=== PATIENT | female | born 2000 | race American Indian/Alaskan Native ===

== ENCOUNTER 2019-01-17 08:50 | Observation (INO) | payer BC ==
[2019-01-17] MEDS ORDERED: INFUVITE IV SCH (09:00)
[2019-01-17] MEDS ORDERED: D5LR IV SCH (09:00)
[2019-01-17] MEDS ORDERED: PHENERGAN PR SCH (09:00)
[2019-01-17] MEDS ORDERED: KCL IV SCH (09:00)
--- NOTE | 2019-01-17 10:53 | History and Physical Report ---
History of Present Illness Date of examination: 01/17/19 Date of admission: 01/17/19 09:59 Chief complaint: nausea and vomiting in History of present illness: EDC Confirmation: 08/29/2019 Past History : 2 Term Births: 0 Premature Births: 0 Living Children: 0 Para: 0 Mult. Births: 0 Prev : 0 Prev. attempt? 0 Aborta: 1 Elect. Ab: 1 Spont. Ab: 0 Ectopics: 0 # 1 Delivery date: 05/2017 Weeks Gestation: 7w2d Delivery type: EAB Comments: pill Past Medical History: Negative Past Medical History Past Surgical History: eye surgery elementary school age L eye tear duct Past Medical History Surgery (Non-welfare adviser): eye surgery elementary school age L eye tear duct Abnormal PAP: negative SHANNAN Exposure: negative Infertility: negative Uterine Anomaly: negative Uterine Surgery (not C/S): negative Other Gynecologic Problems: negative Family Hx: mom-diabetes mgm-htn Social Hx: single. 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 of genital herpes: no Partner hx. of genital herpes: no Rash, Viral, or Febrile illness since last LMP? no Varicella/Chicken Pox Status: Immunized TB Risk: no Genetic History Congenital Heart Defect: Mom: no Dad: no Regine Disease: Mom: no Dad: no Thalassemia Mom: no Dad: no Neural Tube Defect Mom: no Dad: no Down's Syndrome Mom: no Dad: no Orestes-Sachs Mom: no Dad: no Sickle Cell Disease/Trait Mom: no Dad: no Hemophilia Mom: no Dad: no Muscular Dystrophy Mom: no Dad: no Cystic Fibrosis Mom: no Dad: no Bailey Chorea Mom: no Dad: no Mental Retardation Mom: no Dad: no Fragile X Mom: no Dad: no Other Genetic/Chromosomal Disorder Mom: no Dad: no Child w/other defect Mom: no Dad: no Comments/Counseling: FOB cousin autistic Enviromental Exposures Enviromental Exposures Reviewed Xray Exposure: no Medication, drug, or alcohol use since LMP: no Chemical/Other Exposure: no Exposure to Cat Liter: no Hx of Parvovirus (Fifth Disease): no Occupational Exposure to Children: none Active Medications (reviewed today): PLUS 27-1 MG ORAL TABLET ( VIT-FE FUMARATE-FA) 1 po daily Current Allergies: No known allergies Past History Past Medical History: other (see HPI) Past Surgical History: other (see HPI) Family/Genetic History: other (see HPI) - Obstetrical History Expected Date of Delivery: 08/29/19 Actual Gestation: 8 Week(s) 0 Day(s) : 2 Para: 0 Hx # Term Pregnancies: 0 Number of Pregnancies: 0 Spontaneous Abortions: 0 Induced : 1 Number of Living Children: 0 Medications and Allergies Allergies Allergy/AdvReac Type Severity Reaction Status Date / Time No Known Allergies Allergy Unverified 01/17/19 10:59 Active Meds: Active Medications Dextrose/Lactated Ringer's (D5lr) 1,000 mls @ 500 mls/hr IV DIRECT MARILYN Stop: 01/18/19 10:59 Multivitamins/Minerals 10 ml/Potassium Cl/Dextrose/Lact Ringer's 1,010 mls @ 150 mls/hr IV DIRECT MARILYN Stop: 01/17/19 15:43 Metoclopramide HCl (Reglan) 10 mg IV Q6H MARILYN Multivitamins/Iron/Calcium ( Vitamin) 1 each PO QDAY MARILYN Ondansetron HCl (Zofran) 4 mg IV Q6H PRN PRN Reason: N/V unrelieved by Reglan Promethazine HCl (Phenergan) 25 mg RI Q6H MARILYN Review of Systems All systems: negative Constitutional: weight loss Gastrointestinal: nausea, vomiting - Physical Exam Breasts: Positive: normal Cardiovascular: Regular rate Lungs: Positive: Clear to auscultation, Normal air movement Abdomen: Positive: normal appearance, soft Extremities: Positive: normal Results Result Diagrams: 01/17/19 10:27 01/17/19 10:27 All other labs normal. Assessment and Plan 18y/o @ 8 weeks from LMP, u/s still needed to confirm viable . Pt has documented 20lb weight loss in last 2 weeks in office. Admission orders in EMR. hyperemesis pathway initiated. discussed plan of care with patient and s/o, all questions addressed. - Patient Problems (1) Hyperemesis gravidarum Current Visit: No Status: Acute Plan to address problem: HG pathway initiated (2) 8 weeks gestation of Current Visit: Yes Status: Acute
[2019-01-17 11:17] LABS: BUN/Creatinine Ratio 15; Blood Urea Nitrogen 9 mg/dL (7-17); Calcium 10.1 mg/dL (8.4-10.2); Hemolysis Index 1
[2019-01-17 11:19] LABS: Basophils % (Auto) 0.3 % (0.0-1.8); Eosinophils # (Auto) 0.1 K/mm3 (0.0-0.4); Eosinophils % (Auto) 0.8 % (0.0-4.3); Hematocrit 41.4 % (30.3-42.9); Hemoglobin 14.5 gm/dl (10.1-14.3); Lymphocytes # (Auto) 1.2 K/mm3 (1.2-5.4); Lymphocytes % (Auto) 12.3 % (13.4-35.0); Mean Corpuscular HGB Conc 35 % (30-34); Mean Corpuscular Volume 90 fl (79-97); Monocytes # (Auto) 0.5 K/mm3 (0.0-0.8); Monocytes % (Auto) 5.3 % (0.0-7.3); Platelet Count 216 K/mm3 (140-440); Red Blood Count 4.61 M/mm3 (3.65-5.03); Red Cell Distribution Width 13.6 % (13.2-15.2)
[2019-01-17 11:32] LABS: Hepatitis B Surface Antigen Non-Reactive (Negative); Hepatitis C Virus Antibody Non-Reactive (NonReactive)
[2019-01-17 12:33] LABS: Bacteria,Urine 1+ /HPF (Negative); Bilirubin,Urine NEG (Negative); Blood,Urine NEG (Negative); Color,Urine Amber (Yellow); Mucus,Urine 3+ /HPF
[2019-01-17] MEDS: D5LR 1,000 ML IV SCH ×4 (12:34→22:49)
[2019-01-17] MEDS: REGLAN IV SCH ×3 (12:35→21:00)
[2019-01-17] MEDS: ZOFRAN IV PRN ×2 (12:35→17:43)
[2019-01-17] MEDS: PRENATAL VITAMIN PO SCH (12:41)
--- NOTE | 2019-01-17 15:15 | Event Note ---
Date: 01/17/19 pt resting in bed, no complaints. denies vomiting since this morning. still waiting on u/s, radiology called by air conditioning unit assembler - they are aware of order and will be here shortly.
--- NOTE | 2019-01-17 21:27 | Event Note ---
Date: 01/17/19 sono completed IUP confirmed. +[facility] EDC by sono is 08/27/19 EGA is 8 2/7 wks which is c/w edc that is given in H&P but also c/w lmp edc. Pt initial sono in office only showed a GS.
[2019-01-18] MEDS: REGLAN IV SCH ×4 (02:10→10:11)
[2019-01-18] MEDS: PRENATAL VITAMIN PO SCH (10:10)
--- NOTE | 2019-01-18 10:35 | Discharge Summary ---
Providers - Providers Date of Admission: 01/17/19 09:59 Date of discharge: 01/18/19 (pt desires d/c home today) Attending physician: SOFYA PINEDA 01/17/19 08:56 Consult to Dietitian/Nutrition [CONS] Routine Physician Instructions: Reason For Exam: Reason for Consult: hyper grav Reason for Consult: Malnutrition [facility] Reason for admission: hyperemesis Condition: Good Procedures: hydration Hospital course: management of hyperemesis and rehydration Disposition: DC-01 TO HOME OR SELFCARE - Discharge Diagnoses (1) Hyperemesis gravidarum Status: Acute Core Measure Documentation - Palliative Care Palliative Care/ Comfort Measures: Not Applicable - Core Measures Any of the following diagnoses?: none Exam - Constitutional Vitals: Temp Pulse Resp BP Pulse Ox 98.1 F 90 18 112/58 99 01/18/19 07:36 01/18/19 07:36 01/18/19 07:36 01/18/19 07:36 01/18/19 05:00 General appearance: Present: no acute distress, well-nourished - EENT ENT: hearing intact - Neck Neck: Present: supple, normal ROM - Respiratory Respiratory effort: normal Respiratory: bilateral: CTA - Cardiovascular Rhythm: regular Heart Sounds: Absent: rub, click - Extremities Extremities: No edema - Abdominal General gastrointestinal: Present: soft, non-tender, non-distended, normal bowel sounds Female genitourinary: Present: normal - Integumentary Integumentary: Present: clear, warm, dry - Musculoskeletal Musculoskeletal: gait normal, strength equal bilaterally - Psychiatric Psychiatric: appropriate mood/affect, intact judgment & insight - Neurologic Neurologic: CNII-XII intact, moves all extremities - Additional findings Additional findings: pt tolerated regular breakfast, denies any nausea or vomiting. no bleeding or cramping Plan Activity: no restrictions Diet: other (Gu[place]upe diet) Follow up with: TRIPP HULL CNM [Advanced Practice Nurse] - 7 Days (Please keep your scheduled appointment in the office next week. Call for any questions or concerns.) Prescriptions: Metoclopramide [Reglan] 10 mg PO Q6H PRN #60 tab PRN Reason: Nausea Ondansetron [Zofran Odt] 4 mg PO Q8HR PRN #30 tab.rapdis PRN Reason: Nausea
[2019-01-18 12:21] VITALS: BP 107/64
--- NOTE | 2019-01-19 17:19 | Ultrasound Report ---
PROCEDURE: US OB <= 14 WEEKS FETUS TECHNIQUE: Ultrasound obstetrical HISTORY: severe N V COMPARISONS: FINDINGS: This gestational sac within the uterus. There is a pole present with crown-rump length of 1.76 cm corresponding to estimated gestational age of 8 weeks 2 days with estimated date of delivery 2019 cardiac activity present with heart rate 1 65 bpm The yolk sac is identified. Right ovary is 3.2 x 2.9 x 3.1 cm. Normal echogenicity Left ovary is 2.0 x 3.2 x 2.7 cm. A 2.0 cm cyst noted IMPRESSION: Single live intrauterine gestation estimated at 8 weeks 2 days. This document is electronically signed by Kendell Rai MD., January 19 2019 05:16:58 PM ET
== END 2019-01-18 13:30 | disposition home or self-care (01) ==
LOC: 3A 08:50 → UNDOADMIN 08:50 → OB 09:59 → INTOOBSV 09:59
PROVIDERS: ADMIT Obstetrics & Gynecology; ATTEND Obstetrics & Gynecology
DX: O21.0 Mild hyperemesis gravidarum (principal); Z83.3 Family history of diabetes mellitus; Z82.49 Family history of ischemic heart disease and other diseases of the circulatory system; Z3A.08 8 weeks gestation of pregnancy
CPT/HCPCS: 36415; 76801; 80048; 80074; 81001; 82010; 82150; 83690; 84443; 85025; 96374; 96375; 96376; G0378; G0379; J2405; J2765; J7120; J7121

== ENCOUNTER 2019-01-27 22:53 | Emergency (ER) | payer BC ==
[2019-01-27 23:36] LABS: Basophils % (Auto) 0.4 % (0.0-1.8); Eosinophils # (Auto) 0.1 K/mm3 (0.0-0.4); Eosinophils % (Auto) 0.7 % (0.0-4.3); Hematocrit 39.7 % (30.3-42.9); Hemoglobin 13.7 gm/dl (10.1-14.3); Lymphocytes # (Auto) 1.4 K/mm3 (1.2-5.4); Lymphocytes % (Auto) 13.1 % (13.4-35.0); Mean Corpuscular HGB Conc 35 % (30-34); Mean Corpuscular Volume 90 fl (79-97); Monocytes # (Auto) 0.7 K/mm3 (0.0-0.8); Monocytes % (Auto) 6.8 % (0.0-7.3); Platelet Count 199 K/mm3 (140-440); Red Cell Distribution Width 14.1 % (13.2-15.2)
[2019-01-28 00:25] LABS: Alanine Aminotransferase 12 units/L (7-56); Albumin 4.3 g/dL (3.9-5); BUN/Creatinine Ratio 16; Blood Urea Nitrogen 8 mg/dL (7-17); Calcium 10.1 mg/dL (8.4-10.2); Hemolysis Index 6
[2019-01-28 00:25] LABS: Bilirubin,Urine NEG (Negative); Blood,Urine NEG (Negative); Color,Urine Amber (Yellow); Mucus,Urine 3+ /HPF
[2019-01-28] MEDS ORDERED: NACL 0.9% 1000 ML 1,000 ML IV ONE (00:51)
--- NOTE | 2019-01-28 02:06 | Emergency Department Report ---
ED N/V/D HPI - General Chief complaint: Nausea/Vomiting/Diarrhea Stated complaint: 10 WKS PREG.NAUSEA/VOMITING/LIGHT HEADED Time Seen by Provider: 01/28/19 00:48 Source: patient Mode of arrival: Ambulatory Limitations: No Limitations - History of Present Illness Initial comments: 18-year-old -Fijian female at 10 weeks , , presents to ED with nausea, vomiting, for the past 2 days worse today. Patient has a history of admission for similar symptoms about 10 days ago, denies any fever, chills or night sweats. Complaining of lightheadedness, headache, but no neck pain. Has been taking Zofran, and Reglan, with no relief. MD complaint: nausea, vomiting -: Gradual - Related Data Previous Rx's Medication Instructions Recorded Last Taken Type Metoclopramide [Reglan] 10 mg PO Q6H PRN #60 tab 01/18/19 Unknown Rx Ondansetron [Zofran Odt] 4 mg PO Q8HR PRN #30 tab.rapdis 01/18/19 Unknown Rx Doxylamine Succinate/Vit B6 1 each PO DAILY PRN 7 Days #15 01/28/19 Unknown Rx [Landry Lin 10-10 mg Tablet] tablet. Allergies Allergy/AdvReac Type Severity Reaction Status Date / Time No Known Allergies Allergy Verified 01/27/19 22:59 ED Review of Systems ROS: Stated complaint: 10 WKS PREG.NAUSEA/VOMITING/LIGHT HEADED Other details as noted in HPI Comment: All other systems reviewed and negative Cardiovascular: denies: palpitations, dyspnea on exertion Gastrointestinal: nausea, vomiting. denies: diarrhea, constipation, hematemesis, melena Musculoskeletal: denies: back pain Skin: denies: rash ED Past Medical Hx - Past Medical History Previous Medical History?: No Hx Congestive Heart Failure: No Hx Diabetes: No Hx Asthma: No Hx COPD: No - Surgical History Past Surgical History?: Yes Additional Surgical History: eye - Social History Smoking Status: Never Smoker Substance Use Type: None - Medications Home Medications: Home Medications Medication Instructions Recorded Confirmed Last Taken Type Metoclopramide [Reglan] 10 mg PO Q6H PRN #60 tab 01/18/19 Unknown Rx Ondansetron [Zofran Odt] 4 mg PO Q8HR PRN #30 tab.rapdis 01/18/19 Unknown Rx Doxylamine Succinate/Vit B6 1 each PO DAILY PRN 7 Days #15 01/28/19 Unknown Rx [Landry Lin 10-10 mg Tablet] tablet. ED Physical Exam - General Limitations: No Limitations General appearance: alert, in no apparent distress - Head Head exam: Present: atraumatic, normocephalic - Eye Eye exam: Present: normal appearance, PERRL, EOMI Pupils: Present: normal accommodation - ENT ENT exam: Present: normal exam, normal orophraynx - Neck Neck exam: Present: normal inspection - Respiratory Respiratory exam: Present: normal lung sounds bilaterally - Cardiovascular Cardiovascular Exam: Present: regular rate, normal rhythm - GI/Abdominal GI/Abdominal exam: Present: soft, normal bowel sounds ED Medical Decision Making - Lab Data Result diagrams: 01/27/19 23:07 01/27/19 23:07 - Medical Decision Making 18-year-old -Fijian female at 10 weeks , , presents to ED with nausea, vomiting, for the past 2 days worse today. Patient has a history of admission for similar symptoms about 10 days ago, denies any fever, chills or night sweats. Complaining of lightheadedness, headache, but no neck pain. Has been taking Zofran, and Reglan, with no relief. Patient observed in ED, for over 3 hours, no new episode of vomiting, feels better, after IV fluid, will DC home, follow-up with [facility]ER in a.m. Critical care attestation.: If time is entered above; I have spent that time in minutes in the direct care of this critically ill patient, excluding procedure time. ED Disposition Clinical Impression: Vomiting affecting Disposition: DC-01 TO HOME OR SELFCARE Is pt being admited?: No Does the pt Need Aspirin: No Condition: Stable Instructions: Morning Sickness (ED) Prescriptions: Doxylamine Succinate/Vit B6 [Landry Lin 10-10 mg Tablet] 1 each PO DAILY PRN 7 Days #15 tablet.dr ACKERMAN Reason: Vomiting Referrals: CHETAN ROSENBERG MD [Primary Care Provider] - 3-5 Days
== END 2019-01-28 02:30 | disposition home or self-care (01) ==
LOC: ED 22:53
DX: O21.9 Vomiting of pregnancy, unspecified (principal); Z79.899 Other long term (current) drug therapy; Z3A.10 10 weeks gestation of pregnancy
CPT/HCPCS: 36415; 80053; 81001; 83690; 84703; 85025; 96360; 99283; J7030

== ENCOUNTER 2019-01-29 12:59 | Inpatient (IN) | payer BC ==
--- NOTE | 2019-01-29 16:57 | History and Physical Report ---
History of Present Illness Date of examination: 01/29/19 History of present illness: Patient presented to the office today after calling with complaints of increased nausea and vomiting and vomiting coffee grounds sputum for the last 24 hours. Patient was seen in the emergency room on 01/27/2019 and treated with hydration and discharged but has not gone better since then despite taking Zofran and Reglan. Patient has lost 11 pounds over the past week has been admitted to the hospital for treatment of hyperemesis Menstrual History Regularity: regular Menses every: 30 days Duration: 5 LMP: 11/15/2018 LMP reliability: definite EDC Calculations LMP: 08/22/2019 Past History : 2 Term Births: 0 Premature Births: 0 Living Children: 0 Para: 0 Mult. Births: 0 Prev : 0 Prev. attempt? 0 Aborta: 1 Elect. Ab: 1 Spont. Ab: 0 Ectopics: 0 # 1 Delivery date: 05/2017 Weeks Gestation: 7w2d Delivery type: EAB Comments: pill Past Medical History: Negative Past Medical History Past Surgical History: eye surgery elementary school age L eye tear duct Past Medical History Surgery (Non-cook pie): eye surgery elementary school age L eye tear duct Abnormal PAP: negative SHANNAN Exposure: negative Infertility: negative Uterine Anomaly: negative Uterine Surgery (not C/S): negative Other Gynecologic Problems: negative Family Hx: mom-diabetes mgm-htn Social Hx: single. 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 of genital herpes: no Partner hx. of genital herpes: no Rash, Viral, or Febrile illness since last LMP? no Varicella/Chicken Pox Status: Immunized TB Risk: no Current Allergies: No known allergies Past History Past Medical History: other (See HPI) Past Surgical History: Other (See HPI) Social history: other (See HPI) Family history: other (See HPI) Medications and Allergies Allergies Allergy/AdvReac Type Severity Reaction Status Date / Time No Known Allergies Allergy Verified 01/27/19 22:59 Home Medications Medication Instructions Recorded Confirmed Last Taken Type Metoclopramide [Reglan] 10 mg PO Q6H PRN #60 tab 01/18/19 Unknown Rx Ondansetron [Zofran Odt] 4 mg PO Q8HR PRN #30 tab.rapdis 01/18/19 Unknown Rx Doxylamine Succinate/Vit B6 1 each PO DAILY PRN 7 Days #15 01/28/19 Unknown Rx [Landry Lin 10-10 mg Tablet] tablet. Active Meds: Active Medications Dextrose/Lactated Ringer's (D5lr) 1,000 mls @ 500 mls/hr IV DIRECT MARILYN Stop: 01/30/19 18:59 Dextrose/Lactated Ringer's (D5lr) 1,000 mls @ 150 mls/hr IV DIRECT MARILYN Potassium Chloride (Kcl 10meq/100ml) 10 meq in 100 mls @ 100 mls/hr IV ONCE ONE Stop: 01/29/19 17:39 Metoclopramide HCl (Reglan) 10 mg IV Q6H MARILYN Multivitamins/Iron/Calcium ( Vitamin) 1 each PO QDAY MARILYN Ondansetron HCl (Zofran) 4 mg IV Q6H PRN PRN Reason: N/V unrelieved by Reglan Promethazine HCl (Phenergan) 25 mg ME Q6H MARIYLN Review of Systems Constitutional: weight loss, fatigue, poor appetite Gastrointestinal: nausea, vomiting, coffee ground emesis Exam - Constitutional General appearance: Present: mild distress, obese - Respiratory Respiratory effort: normal - Cardiovascular Rhythm: regular - Extremities Extremities: no ischemia - Abdominal General gastrointestinal: Present: soft, non-tender - Rectal Rectal Exam: deferred - Integumentary Integumentary: Present: clear, warm, dry - Musculoskeletal Musculoskeletal: strength equal bilaterally - Psychiatric Psychiatric: appropriate mood/affect, intact judgment & insight Results - Labs CBC & Chem 7: 01/29/19 17:39 Assessment and Plan - Patient Problems (1) Hyperemesis gravidarum Current Visit: No Status: Acute Plan to address problem: Will admit and start hyperemesis protocol (2) Dehydration Current Visit: Yes Status: Acute (3) Weight loss, abnormal Current Visit: Yes Status: Acute
[2019-01-29] MEDS ORDERED: KCL 10MEQ/100ML 10 MEQ/100 ML BAG IV PRN (18:00)
[2019-01-29] MEDS: REGLAN IV SCH (18:20)
[2019-01-29 18:21] LABS: BUN/Creatinine Ratio 14; Blood Urea Nitrogen 7 mg/dL (7-17); Calcium 9.8 mg/dL (8.4-10.2); Hemolysis Index 16
[2019-01-29] MEDS: PHENERGAN PR SCH (19:00)
[2019-01-29] MEDS: D5LR 1,000 ML IV SCH ×3 (19:01→23:06)
[2019-01-30] MEDS: REGLAN IV SCH ×4 (00:16→19:30)
[2019-01-30] MEDS: PHENERGAN PR SCH ×3 (01:30→19:31)
[2019-01-30] MEDS: D5LR 1,000 ML IV SCH (05:44)
[2019-01-30 06:55] LABS: Bilirubin,Urine NEG (Negative); Blood,Urine NEG (Negative); Color,Urine Yellow (Yellow); Mucus,Urine FEW /HPF; Protein,Urine <15 mg/dL mg/dL (Negative); RBC,Urine < 1.0 /HPF (0.0-6.0); WBC,Urine < 1.0 /HPF (0.0-6.0)
[2019-01-30] MEDS ORDERED: PRENATAL VITAMIN PO SCH (10:00)
[2019-01-30] MEDS: ZOFRAN IV PRN ×2 (12:36→19:31)
--- NOTE | 2019-01-30 15:27 | Progress Note ---
Assessment and Plan Decreased UO, oro placed with clear yellow urine in urometer and tube, cr normal. LR fluid bolus given. Observe for now - Patient Problems (1) 10 weeks gestation of Current Visit: Yes Status: Acute (2) Weight loss, abnormal Current Visit: Yes Status: Acute (3) Vomiting affecting Current Visit: No Status: Acute Plan to address problem: Advance diet as tolerated (4) Hypokalemia Current Visit: Yes Status: Acute Plan to address problem: Supplementation ordered Subjective Date of service: 01/30/19 Principal diagnosis: IUP@10weeks, N/V Interval history: Ambulating in room, no vomiting Objective - Constitutional Vitals: Vital Signs - 12hr 01/30/19 01/30/19 01/30/19 04:00 07:42 11:57 Temperature 98.7 F 98.3 F 98.2 F Pulse Rate 74 85 84 Respiratory 18 16 18 Rate Blood Pressure 105/62 114/58 Blood Pressure 114/72 [Left] O2 Sat by Pulse 95 97 Oximetry General appearance: Present: no acute distress - Labs CBC & Chem 7: 01/30/19 17:55 Labs: Abnormal lab results 01/29/19 Range/Units 17:39 Potassium 3.4 L (3.6-5.0) mmol/L Creatinine 0.5 L (0.7-1.2) mg/dL Medications & Allergies - Medications Allergies/Adverse Reactions: Allergies No Known Allergies Allergy (Verified 01/27/19 22:59) Home Medications: Home Medications Medication Instructions Recorded Confirmed Last Taken Type Metoclopramide [Reglan] 10 mg PO Q6H PRN #60 tab 01/18/19 Unknown Rx Ondansetron [Zofran Odt] 4 mg PO Q8HR PRN #30 tab.rapdis 01/18/19 Unknown Rx Doxylamine Succinate/Vit B6 1 each PO DAILY PRN 7 Days #15 01/28/19 Unknown Rx [Landry Lin 10-10 mg Tablet] tablet. Active Medications: Generic Name Dose Route Start Last Admin Trade Name Freq PRN Reason Stop Dose Admin Dextrose/Lactated Ringer's 1,000 mls @ 500 mls/hr 01/29/19 17:00 01/29/19 21:05 D5lr IV 01/30/19 18:59 500 mls/hr DIRECT MARILYN Administration Dextrose/Lactated Ringer's 1,000 mls @ 150 mls/hr 01/29/19 17:00 01/30/19 05:44 D5lr IV 150 mls/hr DIRECT MARILYN Administration Metoclopramide HCl 10 mg 01/29/19 18:00 01/30/19 12:36 Reglan IV 10 mg Q6H MARILYN Administration Multivitamins/Iron/Calcium 1 each 01/30/19 10:00 01/30/19 12:37 Vitamin PO 1 each QDAY MARILYN Administration Ondansetron HCl 4 mg 01/29/19 16:40 01/30/19 12:36 Zofran IV 4 mg Q6H PRN Administration N/V unrelieved by Veronika Promethazine HCl 25 mg 01/29/19 18:00 01/30/19 12:36 Phenergan TN 25 mg Q6H MARILYN Administration
[2019-01-30 18:36] LABS: Alanine Aminotransferase 10 units/L (7-56); Albumin 3.5 g/dL (3.9-5); BUN/Creatinine Ratio 8; Blood Urea Nitrogen 3 mg/dL (7-17); Calcium 8.9 mg/dL (8.4-10.2); Hemolysis Index 10
[2019-01-30] MEDS ORDERED: LACTATED RINGERS 500 ML IV ONE (19:40)
[2019-01-30] MEDS ORDERED: K-DUR PO ONE (20:06)
[2019-01-30] MEDS ORDERED: REGLAN PO PRN (20:14)
[2019-01-31] MEDS: D5LR 1,000 ML IV SCH ×2 (00:28→15:51)
[2019-01-31 06:18] LABS: Hemolysis Index 4
[2019-01-31 07:15] LABS: BUN/Creatinine Ratio 2; Blood Urea Nitrogen < 1 mg/dL (7-17)
--- NOTE | 2019-01-31 08:37 | Progress Note ---
Assessment and Plan patient resting, no complaint. reports tolerating clear liquids. no emesis since day of admission per patient. Will advance to bland diet for lunch and see how patient tolerates. - Patient Problems (1) 10 weeks gestation of Current Visit: Yes Status: Acute (2) Hyperemesis gravidarum Current Visit: No Status: Acute Subjective - Subjective Date of service: 01/31/19 Principal diagnosis: IUP@10weeks, N/V Patient reports: no new complaints Objective - Vital Signs Vital Signs: Vital Signs - 12hr 01/31/19 01/31/19 01/31/19 00:31 04:24 04:38 Temperature 97.8 F 98.5 F Pulse Rate 82 78 Respiratory 18 20 Rate Blood Pressure 108/60 Blood Pressure 102/58 [Left] O2 Sat by Pulse 100 98 Oximetry - Exam Breasts: normal Cardiovascular: Regular rate Lungs: Clear to auscultation Abdomen: Present: normal appearance, soft, normal bowel sounds. Absent: distention, tenderness, guarding Extremities: normal - Labs Labs: Abnormal Labs 01/29/19 01/30/19 01/31/19 17:39 17:55 05:25 Potassium 3.4 L 3.0 L 3.3 L BUN 3 L < 1 L Creatinine 0.5 L 0.4 L 0.5 L Glucose 104 H 106 H Total Protein 6.1 L D Albumin 3.5 L Laboratory Results - last 24 hr 01/30/19 01/31/19 17:55 05:25 Sodium 138 138 Potassium 3.0 L 3.3 L Chloride 103.4 103.2 Carbon Dioxide 25 23 Anion Gap 13 15 BUN 3 L < 1 L Creatinine 0.4 L 0.5 L Estimated GFR > 60 > 60 BUN/Creatinine Ratio 8 2 Glucose 104 H 106 H Calcium 8.9 9.0 Total Bilirubin 0.30 AST 14 ALT 10 Alkaline Phosphatase 66 Total Protein 6.1 L D Albumin 3.5 L Albumin/Globulin Ratio 1.3
[2019-01-31] MEDS ORDERED: K-DUR PO ONE (17:23)
--- NOTE | 2019-01-31 17:26 | Event Note ---
Date: 01/31/19 Agree with exam and note. K+ improved with po intake. Will give another does of Kdur and repeat bmp in the am. con't current management.
[2019-01-31] MEDS: ZOFRAN IV PRN (18:26)
[2019-02-01] MEDS: D5LR 1,000 ML IV SCH (01:26)
[2019-02-01 07:07] LABS: BUN/Creatinine Ratio 8; Blood Urea Nitrogen 3 mg/dL (7-17); Calcium 8.7 mg/dL (8.4-10.2); Hemolysis Index 2
[2019-02-01] MEDS ORDERED: K-DUR PO ONE (08:33)
[2019-02-01] MEDS: ZOFRAN IV PRN (09:14)
[2019-02-01 12:23] LABS: Bilirubin,Urine NEG (Negative); Blood,Urine NEG (Negative); Color,Urine Yellow (Yellow); Mucus,Urine FEW /HPF; Protein,Urine <15 mg/dL mg/dL (Negative); Urobilinogen,Urine < 2.0 mg/dL (<2.0)
--- NOTE | 2019-02-01 13:02 | Discharge Summary ---
Providers - Providers Date of Admission: 01/30/19 12:59 Date of discharge: 02/01/19 (patient desires discharge today) Attending physician: FLORENCIA DE LUNA Primary care physician: FLORENCIA DE LUNA Hospitalization Reason for admission: hyperemesis 10 week GA Condition: Good Procedures: UA WNL prior to discharge. repeat potassium rising, k-dur given PO Hospital course: uneventful Disposition: DC-01 TO HOME OR SELFCARE Core Measure Documentation - Palliative Care Palliative Care/ Comfort Measures: Not Applicable - Core Measures Any of the following diagnoses?: none Exam - Constitutional Vitals: Temp Pulse Resp BP Pulse Ox 98.3 F 76 20 111/54 99 02/01/19 11:54 02/01/19 11:54 02/01/19 11:54 02/01/19 11:54 02/01/19 11:54 General appearance: Present: no acute distress, well-nourished - EENT Eyes: Present: PERRL ENT: hearing intact, clear oral mucosa - Neck Neck: Present: supple, normal ROM - Respiratory Respiratory effort: normal Respiratory: bilateral: CTA - Cardiovascular Rhythm: regular Heart Sounds: Present: S1 & S2. Absent: rub, click - Extremities Extremities: pulses symmetrical, No edema Peripheral Pulses: within normal limits - Abdominal General gastrointestinal: Present: soft, non-tender, non-distended, normal bowel sounds Female genitourinary: Present: normal - Integumentary Integumentary: Present: clear, warm, dry - Musculoskeletal Musculoskeletal: gait normal, strength equal bilaterally - Psychiatric Psychiatric: appropriate mood/affect, intact judgment & insight - Neurologic Neurologic: CNII-XII intact, moves all extremities - Additional findings Additional findings: Patient resting in bed, reports feeling "a lot better", denies any complaints or concerns. Patient reports no n/v x last 24 hours, desires discharge at this time. Consult with abhijeet Hein d/grey at this time, keep scheduled f/u appt in office. Rx for discharge on chart. Plan Activity: no restrictions Diet: regular Follow up with: FLORENCIA DE LUNA MD [Primary Care Provider] - 02/18/19 (Please keep schedul ed follow up OB appointment on 02/18/19. Call [phone] with any questions or concerns. )
[2019-02-01 16:54] VITALS: BP 122/71
== END 2019-02-01 16:20 | disposition home or self-care (01) | DRG 833 ==
LOC: OB 12:59 → 3A 16:33 → UNDOADMOB 16:33 → OB 17:19 → OBSVTOIN 01-30 12:59
PROVIDERS: ADMIT Obstetrics & Gynecology; ATTEND Obstetrics & Gynecology
DX: O21.1 Hyperemesis gravidarum with metabolic disturbance (principal); Z3A.10 10 weeks gestation of pregnancy; Z82.49 Family history of ischemic heart disease and other diseases of the circulatory system; Z83.3 Family history of diabetes mellitus
CPT/HCPCS: 36415; 80048; 80053; 81001; 82150; 84443; G0378; G0379; J2405; J2765; J3480; J7120; J7121

== ENCOUNTER 2019-05-08 10:54 | Outpatient (CLI) | payer BC, OTHER ==
[2019-05-08] MEDS ORDERED: LACTATED RINGERS 500 ML IV ONE (11:24)
[2019-05-08 11:40] LABS: Bilirubin,Urine NEG (Negative); Blood,Urine NEG (Negative); Color,Urine Yellow (Yellow); Mucus,Urine 2+ /HPF; Protein,Urine <15 mg/dL mg/dL (Negative); Urobilinogen,Urine < 2.0 mg/dL (<2.0)
[2019-05-08 11:49] VITALS: BP 119/58
[2019-05-08] MEDS ORDERED: LACTATED RINGERS 1,000 ML IV SCH (12:00)
[2019-05-08] MEDS ORDERED: BICITRA PO ONE (15:46)
== END 2019-05-08 16:59 | disposition home or self-care (01) ==
LOC: TRG 10:54
PROVIDERS: ATTEND Obstetrics & Gynecology
DX: O36.8120 Decreased fetal movements, second trimester, not applicable or unspecified (principal); O60.02 Preterm labor without delivery, second trimester; O26.892 Other specified pregnancy related conditions, second trimester; R10.11 Right upper quadrant pain; Z3A.24 24 weeks gestation of pregnancy
CPT/HCPCS: 36415; 81001; 82150; 83690; J7120

== ENCOUNTER 2019-07-03 11:00 | Outpatient (CLI) | payer BC, OTHER ==
[2019-07-03] MEDS ORDERED: LACTATED RINGERS 1,000 ML IV SCH (12:00)
--- NOTE | 2019-07-03 12:19 | Event Note ---
Date: 07/03/19 (Pt with c/o cramping that started today) Pt is 19 y.o.@ 32wks with c/o abdominal cramping. There is positive movement. Denies LOF, vag bleeding. Cervical exam cl/th/hi. Category 1 tracing noted. Some ctxs noted on monitor. Will start IV fluids. Urine sample sent to lab and is WNL. Plan of care explained to pt and she agrees at this time.
[2019-07-03 12:20] LABS: Bilirubin,Urine NEG (Negative); Blood,Urine NEG (Negative); Color,Urine Yellow (Yellow); Mucus,Urine 2+ /HPF
[2019-07-03 14:21] VITALS: BP 118/56
== END 2019-07-03 14:26 | disposition home or self-care (01) ==
LOC: TRG 11:00
PROVIDERS: ATTEND Obstetrics & Gynecology
DX: O62.9 Abnormality of forces of labor, unspecified (principal); O26.893 Other specified pregnancy related conditions, third trimester; R10.9 Unspecified abdominal pain; Z3A.32 32 weeks gestation of pregnancy
CPT/HCPCS: 59025; 81001; 96360; 96361; J7120

== ENCOUNTER 2019-08-25 14:22 | Outpatient (CLI) | payer BC, MEDICAID ==
[2019-08-25 14:45] VITALS: BP 120/59
[2019-08-25 16:46] LABS: Bacteria,Urine 1+ /HPF (Negative); Bilirubin,Urine NEG (Negative); Blood,Urine NEG (Negative); Color,Urine Yellow (Yellow); Mucus,Urine 2+ /HPF; Urobilinogen,Urine < 2.0 mg/dL (<2.0)
--- NOTE | 2019-08-25 18:14 | Ultrasound Report ---
US OB BPP wo non-stress, US OB limited INDICATION / CLINICAL INFORMATION: post dates. COMPARISON: 01/17/2019 FINDINGS: Single, viable intrauterine in cephalic presentation. heart rate 130. Amniotic fluid volume is normal, with a fluid index of 16 cm. Biophysical profile: breathing movements: 2 movement: 2 posture and tone: 2 Amniotic fluid volume: 2 Total BPP score: 8/8 IMPRESSION: 1. Single, viable, term intrauterine . 2. Biophysical profile score: 8/8. Signer Name: Leonard Barajas MD Signed: 08/25/2019 6:10 PM Workstation Name: [id number]
== END 2019-08-25 17:35 | disposition home or self-care (01) ==
LOC: TRG 14:22
PROVIDERS: ATTEND Obstetrics & Gynecology
DX: O47.1 False labor at or after 37 completed weeks of gestation (principal); Z3A.40 40 weeks gestation of pregnancy
CPT/HCPCS: 76815; 76819; 81001